=== PATIENT | male | born 1975 | race Caucasian/White ===

== ENCOUNTER 2017-02-09 19:46 | Emergency (ER) | payer BC ==
[2017-02-09 19:54] VITALS: RESP 18
--- NOTE | 2017-02-09 20:40 | XR ---
EXAMINATION TYPE: XR KUB -2 upright views. DATE OF EXAM: 02/09/2017 8:34 PM CLINICAL HISTORY: Pain and nausea and vomiting TECHNIQUE: 2 upright abdominal pelvic views obtained. COMPARISON: None. FINDINGS: Scattered gas is seen in non-distended small bowel loops. Gas and fecal material is seen in non-distended colon. There is no visceromegaly, pneumoperitoneum, or abnormal calcification apprecia kavitha. The visualized lung bases, pleural spaces, and cardiac silhouette are unremarkable. The skeletal stru ctures are intact. IMPRESSION: NO ACUTE PROCESS.
[2017-02-09 20:43] LABS: Basophils % (A) 0 %; CH 31.3; CHCM 35.9; Eosinophils # (A) 0.2 k/uL (0-0.7); Eosinophils % (A) 1 %; HCT 50.4 % (39.0-53.0); HDW 2.66; HGB 17.5 gm/dL (13.0-17.5); Luc # (Auto) 0.11; Luc % (Auto) 1; Lymphocytes # (A) 0.8 k/uL (1.0-4.8); Lymphocytes % (A) 6 %; MCH 30.4 pg (25.0-35.0); MCHC 34.7 g/dL (31.0-37.0); MCV 87.6 fL (80.0-100.0); Mean Platelet Volume 7.2; Monocytes # (A) 0.6 k/uL (0-1.0); Monocytes % (A) 5 %; Neutrophils # (A) 11.7 k/uL (1.3-7.7); Neutrophils % (A) 87 %; RBC 5.75 m/uL (4.30-5.90); RDW 12.8 % (11.5-15.5); WBC 13.4 k/uL (3.8-10.6); WBC (Perox) 12.85
[2017-02-09] MEDS ORDERED: SODIUM CHLORIDE 0.9% 1,000 ML IV STA (20:46)
--- NOTE | 2017-02-09 20:46 | ED ---
Abdominal Pain HPI - General Chief Complaint: Abdominal Pain Stated Complaint: NVD,flu symptoms Time Seen by Provider: 02/09/17 19:57 Source: patient, RN notes reviewed Mode of arrival: EMS Limitations: no limitations - History of Present Illness Initial Comments: This is a 41-year-old male who presents to the emergency department with chief complaint of vomiting and diarrhea since noon today. Patient was brought in by EMS because approximately one hour prior to arrival patient was having an episode of vomiting and dizzy, he was told that he passed out. Patient is unsure if he hit his head but does state that he has a mild headache in the back of his head. Father is at bedside and states that when he arrived to patient's home, the patient appeared to be "incoherent." Patient states that his 5-year-old daughter and his girlfriend has also been vomiting. He states that he does have some generalized abdominal pain. Denies fever, chills, chest pain, shortness of breath, constipation, dysuria or hematuria, numbness or tingling, headache or vision changes. - Related Data Home Medications Medication Instructions Recorded Confirmed Escitalopram [Lexapro] 5 mg PO BID 02/09/17 02/09/17 Loratadine [Claritin] 10 mg PO DAILY PRN 02/09/17 02/09/17 Multivitamins, Thera [Multivitamin 1 tab PO DAILY 02/09/17 02/09/17 (formulary)] Allergies Allergy/AdvReac Type Severity Reaction Status Date / Time orange juice [[place]] Allergy Rash/Hives Verified 02/09/17 20:39 Review of Systems ROS Statement: Those systems with pertinent positive or pertinent negative responses have been documented in the HPI. ROS Other: All systems not noted in ROS Statement are negative. Past Medical History Past Medical History: No Reported History History of Any Multi-Drug Resistant Organisms: None Reported Past Surgical History: Appendectomy Past Psychological History: Anxiety Smoking Status: Never smoker Past Alcohol Use History: Occasional Past Drug Use History: None Reported General Exam - General Exam Comments Initial Comments: General: Awake and alert, well-developed; in no apparent distress. HEENT: Head atraumatic, normocephalic. Pupils are equal, round and reactive to light. Extraocular movements intact. Oropharynx moist without erythema or exudate. Neck: Supple. Normal ROM. Cardiovascular: Regular rate and rhythm. No murmurs, rubs or gallops. Chest symmetrical. Respiratory: Lungs clear to auscultation bilaterally. No wheezes, rales or rhonchi. Normal respiratory effort with no use of accessory muscles. Abdomen: Soft, non-distended. Mild generalized abdominal tenderness. No rigidity, rebound or guarding. Normal bowel sounds in all 4 quadrants. Musculoskeletal: Normal ROM, no tenderness bilateral upper and lower extremities. Skin: [place], warm and dry without rashes or lesions. Neurological: Alert and oriented x3. CN II-XII grossly intact. Speech is fluent and answers are appropriate. No focal neuro deficits. Psychiatric: Normal mood and affect. No overt signs of depression or anxiety noted. Limitations: no limitations Course Vital Signs 02/09/17 02/09/17 19:49 21:06 Temperature 97 F L 98.8 F Pulse Rate 88 78 Respiratory 18 18 Rate Blood Pressure 139/76 121/67 O2 Sat by Pulse 99 99 Oximetry Medical Decision Making - Medical Decision Making This is a 41-year-old male who presents to the emergency department with chief complaint of vomiting and diarrhea. - Lab Data Result diagrams: 02/09/17 20:24 02/09/17 20:24 Lab Results 02/09/17 02/09/17 02/09/17 Range/Units 20:24 20:24 22:30 WBC 13.4 H (3.8-10.6) k/uL RBC 5.75 (4.30-5.90) m/uL Hgb 17.5 (13.0-17.5) gm/dL Hct 50.4 (39.0-53.0) % MCV 87.6 (80.0-100.0) fL MCH 30.4 (25.0-35.0) pg MCHC 34.7 (31.0-37.0) g/dL RDW 12.8 (11.5-15.5) % Plt Count 260 (150-450) k/uL Neutrophils % 87 % Lymphocytes % 6 % Monocytes % 5 % Eosinophils % 1 % Basophils % 0 % Neutrophils # 11.7 H (1.3-7.7) k/uL Lymphocytes # 0.8 L (1.0-4.8) k/uL Monocytes # 0.6 (0-1.0) k/uL Eosinophils # 0.2 (0-0.7) k/uL Basophils # 0.0 (0-0.2) k/uL Sodium 138 (137-145) mmol/L Potassium 4.0 (3.5-5.1) mmol/L Chloride 105 (98-107) mmol/L Carbon Dioxide 22 (22-30) mmol/L Anion Gap 11 mmol/L BUN 16 (9-20) mg/dL Creatinine 0.93 (0.66-1.25) mg/dL Est GFR (MDRD) Af Amer >60 (>60 ml/min/1.73 sqM) Est GFR (MDRD) Non-Af >60 (>60 ml/min/1.73 sqM) Glucose 115 H (74-99) mg/dL Calcium 9.9 (8.4-10.2) mg/dL Total Bilirubin 1.0 (0.2-1.3) mg/dL AST 24 (17-59) U/L ALT 32 (21-72) U/L Alkaline Phosphatase 61 (38-126) U/L Total Protein 8.1 (6.3-8.2) g/dL Albumin 4.8 (3.5-5.0) g/dL Amylase 52 (30-110) U/L Lipase 85 (23-300) U/L Urine Color Yellow Urine Appearance Clear (Clear) Urine pH 6.5 (5.0-8.0) Ur Specific [place] 1.025 (1.001-1.035) Urine Protein 1+ H (Negative) Urine Glucose (UA) Negative (Negative) Urine Ketones 4+ H (Negative) Urine Blood Negative (Negative) Urine Nitrite Negative (Negative) Urine Bilirubin Negative (Negative) Urine Urobilinogen <2.0 (<2.0) mg/dL Ur Leukocyte Esterase Negative (Negative) Urine RBC <1 (0-5) /hpf Urine WBC 2 (0-5) /hpf Urine Bacteria Rare H (None) /hpf Urine Mucus Moderate H (None) /hpf - Radiology Data Radiology results: report reviewed X-ray KUB findings: Scattered gas is seen in nondistended small bowel loops. Gas and fecal material is seen in nondistended colon. There is no visceromegaly , pneumoperitoneum, or abnormal calcification appreciated. Visualized lung bases, pleural spaces, and cardiac silhouette are unremarkable. The skeletal structures are intact. Impression: No acute process. Disposition Clinical Impression: Gastroenteritis Disposition: HOME SELF-CARE Condition: Good Instructions: Gastroenteritis (ED) Additional Instructions: Please follow up with primary care provider within 1-2 days. Return to emergency department if symptoms should worsen or any concerns arise. Referrals: Suman Goins MD [Primary Care Provider] - 1-2 days Time of Disposition: 23:26
[2017-02-09 20:48] LABS: ALT 32 U/L (21-72); AST 24 U/L (17-59); Alkaline Phosphatase 61 U/L (38-126); Amylase 52 U/L (30-110); Anion Gap 11 mmol/L; Blood Urea Nitrogen 16 mg/dL (9-20); Calcium 9.9 mg/dL (8.4-10.2); Carbon Dioxide 22 mmol/L (22-30); Chloride 105 mmol/L (98-107); Glucose 115 mg/dL (74-99); Non-African American GFR(MDRD) >60 (>60 ml/min/1.73 sqM); Sodium 138 mmol/L (137-145); Total Protein 8.1 g/dL (6.3-8.2)
[2017-02-09] MEDS ORDERED: ONDANSETRON 4 MG/2 ML VIAL IVP STA (21:17)
[2017-02-09 22:39] LABS: Appearance,Urine Clear (Clear); Bacteria,Urine Rare /hpf; Bilirubin,Urine Negative (Negative); Glucose,Urine (UA) Negative (Negative); Ketones,Urine 4+ (Negative); Leukocyte Esterase,Urine Negative (Negative); Mucus,Urine Moderate /hpf; Nitrite,Urine Negative (Negative); PH, Urine 6.5 (5.0-8.0); Particle Count 5581; Protein,Urine 1+ (Negative); RBC,Urine <1 /hpf (0-5); Specific Gravity,Urine 1.025 (1.001-1.035); UA Billing (MACRO vs. MICRO) MICRO; Urobilinogen,Urine <2.0 mg/dL (<2.0); WBC,Urine 2 /hpf (0-5)
[2017-02-09 23:42] VITALS: BP 126/67; PULSE 64; TEMP 98.9
== END 2017-02-09 23:39 | disposition home or self-care (01) ==
LOC: EC 19:46
DX: K52.9 Noninfective gastroenteritis and colitis, unspecified (principal); F41.9 Anxiety disorder, unspecified; Z79.899 Other long term (current) drug therapy; Z91.018 Allergy to other foods; Z90.49 Acquired absence of other specified parts of digestive tract
CPT/HCPCS: 36415; 80053; 82150; 83690; 85025; 81001; 74000; 99284; 96374; 96361; J2405

== ENCOUNTER 2019-08-09 21:30 | Emergency (ER) | payer BC ==
[2019-08-09 21:54] VITALS: BP 154/104; PULSE 97; RESP 17; TEMP 98.7
[2019-08-09] MEDS ORDERED: ACET/COD 300 MG/30 MG STARTER PACK 6 TAB BTL PO STA (22:04)
--- NOTE | 2019-08-09 22:19 | XR ---
EXAMINATION TYPE: XR ankle complete RT DATE OF EXAM: 08/09/2019 COMPARISON: None HISTORY: Fall, pain TECHNIQUE: Three-view right ankle FINDINGS: There is a small ossification inferior to the medial malleolus. Cortical margins appear smo oth. Avulsion is considered unlikely. Ankle mortise appears within normal limits. Some mild soft tiss ue swelling is over the lateral malleolus and anterior ankle. IMPRESSION: 1. No acute displaced fracture. 2. Soft tissue swelling. 3. Follow-up exam should be performed 7-10 days from acute trauma for continued pain.
--- NOTE | 2019-08-09 22:58 | ED ---
Lower Extremity Injury HPI - General Source: patient, family Mode of arrival: wheelchair Limitations: no limitations <Enedina Velazquez - Last Filed: 08/09/19 23:23> <Courtney Stephens - Last Filed: 08/11/19 07:23> - General Chief Complaint: Extremity Injury, Lower Stated Complaint: Fall, R Ankle Injury Time Seen by Provider: 08/09/19 21:42 - History of Present Illness Initial Comments: 44 year feel presenting today for chief complaint of right ankle pain and swelling. Patient states he misstepped going down stairs inverting his right ankle he states he has lateral ankle swelling. Patient states is painful to ambulate but he can weight-bear. Patient denies any pain at the knee doesn't injury to the head and neck abdomen chest or back. Patient has no additional complaints denies numbness tingling loss sensation remaining review of system negative (Enedina Velazquez) - Related Data Home Medications Medication Instructions Recorded Confirmed Escitalopram [Lexapro] 5 mg PO BID 02/09/17 02/09/17 Loratadine [Claritin] 10 mg PO DAILY PRN 02/09/17 02/09/17 Multivitamins, Thera [Multivitamin 1 tab PO DAILY 02/09/17 02/09/17 (formulary)] Previous Rx's Medication Instructions Recorded Ondansetron Odt [Zofran Odt] 4 mg PO Q8HR PRN #15 tab 02/09/17 Allergies Allergy/AdvReac Type Severity Reaction Status Date / Time orange juice [[place]] Allergy Rash/Hives Verified 02/09/17 20:39 Review of Systems ROS Other: All systems not noted in ROS Statement are negative. <Enedina Velazquez - Last Filed: 08/09/19 23:23> ROS Other: All systems not noted in ROS Statement are negative. <Courtney Stephens - Last Filed: 08/11/19 07:23> ROS Statement: Those systems with pertinent positive or pertinent negative responses have been documented in the HPI. Past Medical History Past Medical History: No Reported History History of Any Multi-Drug Resistant Organisms: None Reported Past Surgical History: Appendectomy Past Psychological History: Anxiety Smoking Status: Never smoker Past Alcohol Use History: Occasional Past Drug Use History: None Reported <Enedina Velazquez - Last Filed: 08/09/19 23:23> General Exam Limitations: no limitations <Enedina Velazquez - Last Filed: 08/09/19 23:23> - General Exam Comments Initial Comments: General: The patient is awake and alert, in no distress Eye: +3 mm pupils are equal, round and reactive to light, extra-ocular movements are intact. No nystagmus. There is normal conjunctiva bilaterally. No signs of icterus. Ears, nose, mouth and throat: There are moist mucous membranes and no oral lesions. Neck: The neck is supple, there is no tenderness or JVD. Cardiovascular: There is a regular rate and rhythm. No murmur, rub or gallop is appreciated. Respiratory: Lungs are clear to auscultation, respirations are non-labored, breath sounds are equal. No wheezes, stridor, rales, or rhonchi. Gastrointestinal: Soft, non-distended, non-tender abdomen without masses or organomegaly noted. There is no rebound or guarding present. Musculoskeletal: Upon inspection there is both lateral and medial aspect swelling. Mild appearance of the medial aspect more so significant bilateral swelling. Normal ROM of the ankles bilaterally with some tenderness at the right Strength 5/5. Sensation intact. Radial and DP pulses equal bilaterally 2+. Compartments are soft and compressible. No proximal tibia and fibula pain Neurological: A&O x 3. CN II-XII intact grossly, There are no obvious motor or sensory deficits. Coordination appears grossly intact. Speech is normal. Skin: Skin is warm and dry and no rashes or lesions are noted. Psychiatric: Cooperative, appropriate mood & affect, normal judgment. (Enedina Velazquez) Course Vital Signs 08/09/19 21:49 Temperature 98.7 F Pulse Rate 97 Respiratory 17 Rate Blood Pressure 154/104 O2 Sat by Pulse 97 Oximetry Medical Decision Making <Enedina Velazquez - Last Filed: 08/09/19 23:23> <Courtney Stephens - Last Filed: 08/11/19 07:23> - Medical Decision Making XR no fracture identified. Suspect sprain. Pt can wieght bear. Neurovascularly intact. Patient placed in a ankle stirrup I inserted patient to follow up with primary care ice compress elevate the ankle and follow-up with orthopedic surgery if symptoms are persisting greater than one week patient is agreeable to care plan and discharge at this time provided Tylenol 3 in the emergency department has a ride at bedside (Enedina Velazquez) I was available for consultation in the emergency department. The history and physical exam were done by the midlevel provider. I was consulted for this patients care. I reviewed the case with the midlevel provider and based on their presentation of the patient, I agree with the assessment, medical decision making and plan of care as documented. Chart was dictated using [id number] dictation software. Attempts were made to correct any dictation errors however some typographical errors may persist. (Courtney Stephens) Disposition Is patient prescribed a controlled substance at d/c from ED?: No Time of Disposition: 22:58 <Enedina Velazquez - Last Filed: 08/09/19 23:23> <Courtney Stephens - Last Filed: 08/11/19 07:23> Clinical Impression: Ankle sprain, Right ankle sprain Disposition: HOME SELF-CARE Condition: Good Instructions (If sedation given, give patient instructions): Ankle Sprain (ED) Additional Instructions: Please use medication as discussed. Please follow-up with family doctor in the next 2 days. Please return to emergency room if the symptoms increase or worsen or for any other concerns. Referrals: Suman Goins MD [Primary Care Provider] - 1-2 days
== END 2019-08-09 23:24 | disposition home or self-care (01) ==
LOC: EC 21:30
DX: S93.401A Sprain of unspecified ligament of right ankle, initial encounter (principal); F41.9 Anxiety disorder, unspecified; Z79.899 Other long term (current) drug therapy; Z91.018 Allergy to other foods; W10.9XXA Fall (on) (from) unspecified stairs and steps, initial encounter; Y92.009 Unspecified place in unspecified non-institutional (private) residence as the place of occurrence of the external cause
CPT/HCPCS: 73610; 99283; 29515; L4350

== ENCOUNTER 2022-06-10 09:07 | Day surgery (SDC) | payer BC ==
[2022-06-05 11:35] VITALS: BMI 28.4
[~2022-06-10 09:07] MED LIST: LACTATED RINGERS 1,000 ML IV SCH; LIDOCAINE 1% (10MG/ML) FOR IV START INTRADERMA PRN
[2022-06-10 09:39] VITALS: RESP 16; TEMP 98.2
[2022-06-10] MEDS ORDERED: LACTATED RINGERS 1,000 ML IV ONE (09:39)
[2022-06-10] MEDS ORDERED: PROPOFOL 10 MG/ML 20 ML VIAL IV ONE (10:07)
--- NOTE | 2022-06-10 10:17 | P.GSHP ---
History of Present Illness H&P Date: 06/10/22 Chief Complaint: Colon cancer screening 47-year-old male here today for colonoscopy. He has not had one previously. No family history of colon cancer. 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 History of Any Multi-Drug Resistant Organisms: None Reported Past Surgical History: Appendectomy Past Anesthesia/Blood Transfusion Reactions: No Reported Reaction Smoking Status: Former smoker - Past Family History Mother Family Medical History: Deep Vein Thrombosis (DVT) Medications and Allergies Home Medications Medication Instructions Recorded Confirmed Type Escitalopram [Lexapro] 10 mg PO DAILY 06/05/22 06/10/22 History lisinopriL [Zestril] 10 mg PO DAILY 06/05/22 06/10/22 History Allergies Allergy/AdvReac Type Severity Reaction Status Date / Time orange juice [[place]] Allergy Rash/Hives Verified 06/10/22 09:25 Surgical - Exam Vital Signs Temp Pulse Resp BP Pulse Ox 98.2 F 78 16 148/96 96 06/10/22 09:37 06/10/22 09:37 06/10/22 09:37 06/10/22 09:37 06/10/22 09:37 Physical exam: General: Well-developed, well-nourished HEENT: Normocephalic, sclerae nonicteric Abdomen: Nontender, nondistended Extremities: No edema Neuro: Alert and oriented Assessment and Plan (1) Colon cancer screening Narrative/Plan: Will proceed with colonoscopy at this time. Current Visit: Yes Status: Acute Code(s): Z12.11 - ENCOUNTER FOR SCREENING FOR MALIGNANT NEOPLASM OF COLON SNOMED Code(s): 158465175
--- NOTE | 2022-06-10 10:32 | P.PCN ---
Date of Procedure: 06/10/22 Procedure(s) Performed: PREOPERATIVE DIAGNOSIS: Colon cancer screening POSTOPERATIVE DIAGNOSIS: Small transverse colon polyp PROCEDURE: Colonoscopy with biopsy ANESTHESIA: MAC SURGEON: Alton Huynh M.D. SPECIMENS: Small polyp ENDOSCOPIC PROCEDURE: The patient was placed on the endoscopy table in the left decubitus position. The Olympus colonoscope was inserted into the anus and passed under direct visualization to the base of the cecum. The appendiceal orifice was visualized. From that point the scope was slowly withdrawn inspecting all surfaces carefully. There were no neoplastic inflammatory or polypoid lesions throughout the cecum or ascending colon. In the transverse colon a small polyp was seen and removed using the snare with cautery technique. The remainder of the transverse descending sigmoid and rectum was normal. There was no visible diverticulosis. Digital rectal examination was normal. The patient was taken to the recovery room in stable condition per anesthesia guidelines. RECOMMENDATIONS: Await biopsy results. Repeat colonoscopy pending pathology results.
[2022-06-10 10:51] VITALS: BP 123/83; PULSE 71
== END 2022-06-10 11:08 | disposition home or self-care (01) ==
LOC: ORWHC2ENDO 09:07
PROVIDERS: ATTEND Surgery
DX: Z12.11 Encounter for screening for malignant neoplasm of colon (principal); D12.3 Benign neoplasm of transverse colon; I10 Essential (primary) hypertension; G47.33 Obstructive sleep apnea (adult) (pediatric); Z87.891 Personal history of nicotine dependence; F41.9 Anxiety disorder, unspecified; K21.9 Gastro-esophageal reflux disease without esophagitis; Z79.899 Other long term (current) drug therapy; Z90.49 Acquired absence of other specified parts of digestive tract; Z83.2 Family history of diseases of the blood and blood-forming organs and certain disorders involving the immune mechanism; Z91.018 Allergy to other foods
CPT/HCPCS: 88305; 45380; J2704